=== PATIENT | male | born 1990 | race American Indian/Alaskan Native ===

== ENCOUNTER 2024-05-02 18:25 | Emergency (ER) | payer MEDICAID, SELFPAY ==
[2024-05-02 18:28] VITALS: BMI 21.9
[2024-05-02 18:54] VITALS: BP 131/82; PULSE 88; RESP 16; TEMP 37.1; O2SAT 96
--- NOTE | 2024-05-02 19:06 | PD.EDRME ---
Rapid Medical Screening Exam RME Arrival date/time: 05/02/24 18:25 35-year-old male no significant past medical history presents emergency department complaining of burning epigastric pain that has now moved to the right upper quadrant and is been ongoing for 6 days. Patient also endorses nausea and headache. Chief Complaint: Abdominal Pain Time Seen by Provider: 05/02/24 18:43 Vital signs: Vital Signs Temperature 98.7 F 05/02/24 18:54 Pulse Rate 88 05/02/24 18:54 Respiratory Rate 16 05/02/24 18:54 Blood Pressure 131/82 H 05/02/24 18:54 Pulse Oximetry (%) 96 05/02/24 18:54 Oxygen Delivery Method Room Air 05/02/24 18:54 Vital signs reviewed by provider: Yes
[2024-05-02 19:32] LABS: Basophils % (Auto) 0 % (0-2.5); Eosinophils % (Auto) 0 % (0-10); Hematocrit 40.7 % (41.0-53.0); Hemoglobin 13.8 g/dL (13.5-16.0); Immature Granulocytes % (Auto) 0 % (0-0); Immature Granulocytes Auto 0.01 Thou/mm3 (0.00-0.00); Lymphocytes # (Auto) 1.9 Thou/mm3 (1.0-4.8); Lymphocytes % (Auto) 32 % (10-50); Mean Corpuscular HGB Conc 33.9 g/dl (31.0-37.0); Mean Corpuscular Hemoglobin 30.9 pg (25.0-35.0); Mean Corpuscular Volume 91 fL (80-100); Monocytes # (Auto) 0.5 Thou/mm3 (0.0-0.8); Monocytes % (Auto) 8 % (0-12); Neutrophils # (Auto) 3.5 Thou/mm3 (1.8-7.7); Neutrophils % (Auto) 59 % (37-80); Nucleated Red Blood Cell % 0 /100 WBC (0); Platelet Count 221 Thou/mm3 (140-440); RDW Standard Deviation 42.8 fL (35.1-43.9); Red Blood Count 4.46 Miln/mm3 (4.50-5.90); White Blood Count 5.9 Thou/mm3 (3.8-10.6)
[2024-05-02] MEDS: LIDOCAINE VISCOUS 2% 15 ML UDC PO (19:48)
[2024-05-02] MEDS: FAMOTIDINE 20 MG TABLET 40 MG PO (19:48)
[2024-05-02] MEDS: MG HYD/AL HYD/SIME (Maalox Reg) SUSP 30 ML UDC PO (19:48)
[2024-05-02 19:50] LABS: Collection Type, Urine Clean Catch; Squamous Epithelial Cell,Urine 0 /hpf (0-5)
[2024-05-02 19:50] LABS: Alanine Aminotransferase 20 U/L (10-49); Albumin, Serum 4.6 gm/dL (3.5-5.0); Alkaline Phosphatase 62 U/L (46-116); Anion Gap 8 (7-16); Aspartate Amino Transferase 19 U/L (0-34); BUN/Creatinine Ratio 8 Ratio (12-20); Bilirubin,Total 0.4 mg/dL (0.3-1.2); Blood Urea Nitrogen 6 mg/dL (9-23); Calcium 9.6 mg/dL (8.3-10.6); Calcium (Corrected) 9.6 mg/dL (8.5-10.1); Carbon Dioxide 28.8 mMol/L (20.0-31.0); Chloride 105 mMol/L (98-107); Creatinine (Component) 0.8 mg/dL (0.6-1.3); Estimated Creatinine Clearance 119.1 mL/min (>60); Globulin 2.3 gm/dL (2.3-3.5); Glucose 95 mg/dL (74-106); Lipase 44 U/L (12-53); Osmolality,Calculated 280 (275-295); Potassium 3.8 mMol/L (3.4-5.1); Sodium 142 mMol/L (136-145); Total Protein 6.9 gm/dL (5.7-8.2); eGFR > 60 See Note
[2024-05-02 19:53] LABS: Bilirubin,Urine Negative (Negative); Blood,Urine Negative (Negative); Clarity,Urine Clear (Clear/Hazy); Color,Urine Colorless (Lt Yel-Yel); Culture Indicated,Urine Not Indicated; Glucose, Urine Negative (Negative); Ketones,Urine Negative (Negative); Leukocyte Esterase,Urine Negative (Negative); Nitrite,Urine Negative (Negative); PH,Urine 7.5 (5.0-7.0); Protein,Urine Negative (Neg - Trace); RBC,Urine 1 /hpf (0-3); Urobilinogen,Urine Negative mg/dL (0.0-1.0); WBC,Urine < 1 /hpf (0-5)
[2024-05-02 20:03] LABS: Amphetamine/Methamp Scrn,U Negative (Negative); Barbiturate Screen,Urine Negative (Negative); Benzodiazepines Screen,Urine Negative (Negative); Benzoylecgonine Screen, Ur Negative (Negative); Fentanyl Screen,Urine Negative (Negative); Opiate Screen,Urine Negative (Negative); THC Screen,Urine Negative (Negative)
--- NOTE | 2024-05-02 20:07 | EDNOTE_ITS ---
<Statement entered by Sandy Ortega MD - 05/03/24 04:28> As co-signing physician, I was present and available for consult prn. I concur with the plan and care as documented by the midlevel provider. ED Abdominal Pain RME/HPI General Chief Complaint: Abdominal Pain Stated complaint: abdominal pain, NV, BROTHERS x 6 days Time seen by provider: 05/02/24 18:43 Arrival date/time: 05/02/24 18:25 35-year-old male no significant past medical history presents emergency department complaining of burning epigastric pain that has now moved to the right upper quadrant and is been ongoing for 6 days. Patient also endorses nausea and headache. Source: patient Mode of arrival: ambulatory Limitations: no limitations RME / HPI RME / HPI narrative: 05/02/24 18:25 35-year-old male no significant past medical history presents emergency department complaining of burning epigastric pain that has now moved to the right upper quadrant and is been ongoing for 6 days. Patient also endorses nausea and headache. Related Data Allergies Allergy/AdvReac Type Severity Reaction Status Date / Time No Known Allergies Allergy Verified 05/02/24 18:27 Review of Systems Review of Systems Systems Reviewed: All systems reviewed, normal except as documented Constitutional Constitutional: Reports system reviewed and no additional complaints, except as documented, Denies body ache(s), Denies chills, Denies fever(s) and Reports headache(s) Eyes Eyes: Reports system reviewed and no additional complaints, except as documented and Denies change in vision ENT Ears, Nose, Mouth, and Throat: Reports system reviewed and no additional complaints, except as documented, Denies disequilibrium, Denies dizziness, Reports headache(s), Denies sore throat and Denies vertigo Cardiovascular Cardiovascular: Reports system reviewed and no additional complaints, except as documented, Denies chest pain and Denies dyspnea Respiratory Respiratory: Reports system reviewed and no additional complaints, except as documented, Denies chest congestion, Denies cough and Denies dyspnea Gastrointestinal Gastrointestinal: Reports system reviewed and no additional complaints, except as documented, Reports abdominal pain, Reports nausea and Denies vomiting Musculoskeletal Musculoskeletal: Reports system reviewed and no additional complaints, except as documented, Denies abnormal gait and Denies arthralgias Integumentary/Breasts Skin/Breast: Reports system reviewed and no additional complaints, except as documented, Denies erythema, Denies rash and Denies wounds Neurologic Neurologic: Reports system reviewed and no additional complaints, except as documented, Denies abnormal gait, Denies disequilibrium, Denies dizziness, Reports headache(s) and Denies vertigo Past Medical History Social History SMOKING STATUS: Never smoker ED Exam General Limitations: Present no limitations General appearance: Present alert and in no apparent distress Head Head exam: Present atraumatic Eye Eye exam: Present normal appearance, PERRL and EOMI ENT ENT exam: Present normal exam, normal oropharynx and mucous membranes moist Neck Neck exam: Present normal inspection, full ROM and trachea midline Chest Chest inspection: Present normal inspection and symmetric chest wall rise Respiratory Respiratory exam: Present normal lung sounds bilaterally Cardiovascular Cardiovascular exam: Present regular rate, normal rhythm and normal heart sounds Abdominal Exam Abdominal exam: Present soft and normal bowel sounds Extremities Exam Extremities exam: Present normal inspection and full ROM Back Exam Back exam: Present normal inspection and full ROM Neurological Exam Neurological exam: Present alert, oriented X3 and CN II-XII intact Psychiatric Psychiatric exam: Present normal affect and normal mood Skin Skin exam: Present warm, dry, intact and normal color Course Quality Measures none Orders Category Date Time Status CBC Stat Lab 05/02/24 19:19 Completed CMP [Comprehensive Metabolic Panel] Stat Lab 05/02/24 19:19 Completed Drug Screen,Urine Stat Lab 05/02/24 19:43 Completed Lipase Stat Lab 05/02/24 19:19 Completed Urinalysis, C/S if Indicated Stat Lab 05/02/24 19:43 Completed Famotidine [Pepcid] Med 05/02/24 19:05 Discontinued 40 mg PO X1 ONE Lidocaine 2% Viscous [Xylocaine 2% Viscous] Med 05/02/24 19:05 Discontinued 15 ml PO X1 ONE mg Hyd/Al Hyd/Christos Susp [Maalox Susp] Med 05/02/24 19:05 Discontinued 30 ml PO X1 ONE Vital Signs Vital signs: Vital Signs Temperature 98.7 F 05/02/24 18:54 Pulse Rate 88 05/02/24 18:54 Respiratory Rate 16 05/02/24 18:54 Blood Pressure 131/82 H 05/02/24 18:54 Pulse Oximetry (%) 96 05/02/24 18:54 Oxygen Delivery Method Room Air 05/02/24 18:54 96% room air within normal limits Abdominal Pain MDM MDM Narrative MDM Narrative:: 35-year-old male no significant past medical history presents emergency department complaining of burning epigastric pain that has now moved to the right upper quadrant and is been ongoing for 6 days. Patient also endorses nausea and headache. Patient denies any fever, chills, cough, dysuria, or any other associated symptom. CBC was unremarkable for any leukocytosis. CMP was unremarkable for any elevated LFTs or gross electrolyte abnormalities. Urinalysis was also unremarkable. Abdomen is soft and nontender. Patient reported improvement in symptoms after medication was given. Patient struck to follow-up with primary care provider and return to emergency department for any worsening symptoms or as needed. Patient data External records reviewed:: None Clinical information provided by:: patient Social determinants that could affect healthcare access:: none Patient has the following chronic illnesses:: None How is presenting disease/condition affected by chronic disease/condition?: no chronic disease Evaluation data The following diagnostics were reviewed and interpreted by me:: lab results Lab and/or radiology exams considered but not ordered:: Ordered Interpretation Summary: Interpreted by me Medications / Prescriptions Medications or Prescriptions considered but not ordered:: Ordered Medication administrations:: Medication Administration History Discontinued Medications Al Hydrox/Mg Hydrox/Simethicone (Mg Hyd/Al Hyd/Christos (Maalox Reg) Susp 30 Ml Udc) 30 ml PO X1 ONE Stop: 05/02/24 19:06 Last Admin: 05/02/24 19:48 Dose: 30 ml Documented By: ERIKA Famotidine (Famotidine 20 Mg Tablet) 40 mg PO X1 ONE Stop: 05/02/24 19:06 Last Admin: 05/02/24 19:48 Dose: 40 mg Documented By: EE Lidocaine HCl (Lidocaine Viscous 2% 15 Ml Udc) 15 ml PO X1 ONE Stop: 05/02/24 19:06 Last Admin: 05/02/24 19:48 Dose: 15 ml Documented By: EE Given Consultations Consultation(s) initiated? (list below): No Diagnosis Differential diagnosis abdominal pain: abdominal pain, acute appendicitis, calculus of kidney, constipation, diverticulitis, gastroenteritis, pancreatitis and small bowel obstruction Most likely diagnosis given after review of the tests above:: Abdominal pain Admission Indicated Admission indicated?: not indicated Admission Request Was there a request for admission?: No Disposition Plan Disposition Plan: Discharge Discharge Attestation Discharge Attestation: The patient and all family members were given an opportunity to ask questions and understood the discharge instructions. Discharge instructions specifically effects, indications for sooner follow up or return to the emergency department, and the expected course of current diagnosis. Patient condition: Stable Discharge Plan Plan Patient Disposition: HOME (Self Care) Disposition Comment: Stable Prescriptions/Referrals Referrals: No Primary/Family,Physician [Primary Care Provider] - In 1 week Problem List Clinical Impression: Abdominal pain Patient/Caregiver Discharge Instructions Discharge Activity: activity as tolerated Education Materials: Abdominal Pain Additional Instructions: Drink plenty of fluids and stay hydrated. Avoid drinking alcohol, spicy foods, or fatty foods. Follow-up with primary care provider in 2 to 3 days and request H. pylori testing or referral to GI specialist if symptoms persist. Return to emergency department for any worsening symptoms or as needed. Print Language: Kyrgyz Stand Alone Forms: Adelina Award Info., Patient Portal Info Letter PA/PACKING CLERK Supervising Physician PA/PACKING CLERK Supervising Physician: Dr. Ortega
== END 2024-05-02 20:35 | disposition home or self-care (01) ==
PROVIDERS: Emergency Provider Emergency Medicine
DX: R10.13 Epigastric pain (principal); R10.11 Right upper quadrant pain
CPT/HCPCS: 36415; 80053; 80307; 81001; 83690; 85025; 99283; J3490; A9270

== ENCOUNTER 2025-03-05 03:42 | Emergency (ER) | payer MEDICAID, SELFPAY ==
[2025-03-05 03:44] VITALS: BMI 26.6
--- NOTE | 2025-03-05 03:56 | EKG_ITS ---
[facility] Test Date: 2025-03-05 Pat Name: VENU MARS Department: Room: - Gender: Male Air Bag Buffer: : 1990 Requested By: Jesus Alberto Villegas Order Number: [id number] Reading MD: Jesus Alberto Villegas Measurements Intervals Harrison Rate: 138 P: 65 WV: 136 QRS: 99 QRSD: 97 T: 50 QT: 308 QTc: 467 Interpretive Statements SINUS TACHYCARDIA INDETERMINATE AXIS ABNORMAL RHYTHM ECG WARNING: DATA QUALITY MAY AFFECT INTERPRETATION No previous ECG available for comparison /[id number]/[email or web address]/[id number]/[id number]
--- NOTE | 2025-03-05 04:11 | EDNOTE_ITS ---
ED Medical Clearance RME/HPI General Chief complaint: Medical Clearance Stated complaint: LONG TERM CLEARANCE Arrival date/time: 03/05/25 03:42 RME / HPI RME / HPI Narrative: See [facility] for Dr. Rangel's HPI Documentation. Related Information Allergies Allergy/AdvReac Type Severity Reaction Status Date / Time No Known Allergies Allergy Verified 03/05/25 03:46 Review of Systems Review of Systems Systems Reviewed: All systems reviewed, normal except as documented Past Medical History Social History SMOKING STATUS: Light (< 1 pack/day) ED Exam Narrative Physical exam: See [facility] for Dr. Rangel's Physical Exam Documentation. Course Quality Measures none Orders Category Date Time Status EKG (ED ONLY) *Do not use* NOW Care 03/05/25 03:56 Completed EKG (ED Only) Stat Exams 03/05/25 03:56 Draft Metoprolol Tartrate [Lopressor] Med 03/05/25 03:56 Discontinued 25 mg PO X1 ONE Vital Signs Vital signs: Vital Signs Temperature 97.9 F 03/05/25 04:13 Pulse Rate 139 H 03/05/25 04:13 Respiratory Rate 18 03/05/25 04:13 Blood Pressure 122/66 03/05/25 04:13 Pulse Oximetry (%) 94 L 03/05/25 04:13 Medical Clearance [facility] Narrative [facility] Narrative:: This section includes all my notes and documentations, including HPI, PE, and ED course. Jesus Alberto Rangel MD HPI: 35 y/o male BIB [facility] here for halfway medical clearance due to tachycardia. Patient is not answering any of my questions. Uncertain about chest pain. Uncertain about alcohol or drug ingestion. ROS: Patient declined to answer my questions. Physical Exam: General: Alert. Appears intoxicated. Eyes: Conjunctivae and lids clear. EOMI. PERRL. ENT: No nasal congestion. Neck: Supple. Heart: Tachycardia with regular rhythm. Lungs: No respiratory distress. Good air movement. No rhonchi, wheezing, rales. Chest: No tenderness. Abdomen: Soft and nontender. Normal bowel sounds. No distension. No rebound or guarding. Back: No tenderness. Legs: No clubbing, cyanosis, edema. Skin: Warm and dry. Neuro: Alert. Cranial Nerves II-XII grossly intact. No peripheral motor deficits. Musculoskeletal: All major joints and bones are not tender with no limited ROM. I reviewed all diagnostic test results: My interpretation of the EKG is: Sinus tachycardia (138 bpm) with nonspecific ST-T changes. Patient declined all other diagnostic tests, including blood/urine tests. At this point, diagnoses include: Tachycardia Patient declined all diagnostic tests and treatments. Discussed potential risks, including worsening and sudden . We couldn't change his mind. Based on my best medical judgment, made decision to medically clear the patient and no further evaluation or treatment indicated at this time. Patient understands and agrees to the discharge instructions customized and printed, see below. Discharge Instructions from Dr. Rangel printed for you: 1. After evaluation, you are medically cleared for halfway without full diagnostic tests and appropriate treatments. Because you declined all diagnostic tests and appropriate treatments. Despite discussing potential risks, including sudden , we couldn't change your mind. 2. See a private doctor on 03/07/25 or whenever you are released for recheck and further care. 3. Seek immediate medical care with chest pain or with any concerns You can ask for immediate medical attention anytime. Jesus Alberto Rangel MD Patient data External records reviewed:: [facility] previous records (Reviewed prior ED records from 05/02/24. Patient was seen for Abdominal pain.) Clinical information provided by:: patient and law enforcement Social determinants that could affect healthcare access:: none Patient has the following chronic illnesses:: None reported How is presenting disease/condition affected by chronic disease/condition?: no chronic disease Evaluation data The following diagnostics were reviewed and interpreted by me:: lab results and EKG tracing(s) (My interpretation of the EKG is: Sinus tachycardia (138 bpm) with nonspecific ST-T changes. Jesus Alberto Rangel MD) Lab and/or radiology exams considered but not ordered:: None Interpretation Summary: I reviewed all diagnostic test results: My interpretation of the EKG is: Sinus tachycardia (138 bpm) with nonspecific ST-T changes. Patient declined all other diagnostic tests, including blood/urine tests. Medications / Prescriptions Medications or Prescriptions considered but not ordered:: None Medication administrations:: Medication Administration History Discontinued Medications Metoprolol Tartrate (Metoprolol Tartrate 25 Mg Tablet) 25 mg PO X1 ONE Stop: 03/05/25 03:57 Last Admin: 03/05/25 04:24 Dose: Not Given Documented By: CARMENCITA Non-Admin Reason: Patient Refused Patient declined all diagnostic tests and treatments. Discussed potential risks, including worsening and sudden . We couldn't change his mind. Consultations Consultation(s) initiated? (list below): No Diagnosis Medical Clearance Differential Diagnosis: other (Hypertension, Tachycardia, Anxiety Disorder) Most likely diagnosis given after review of the tests above:: Tachycardia, probably due to intoxication. Admission Indicated Admission indicated?: not indicated Explain why admission is indicated or not indicated:: Patient declined all diagnostic tests and treatments. Discussed potential risks, including worsening and sudden . We couldn't change his mind. Admission Request Was there a request for admission?: No Disposition Plan Disposition Plan: Discharge (Discharged to [facility]) Discharge Attestation Discharge Attestation: The patient and all family members were given an opportunity to ask questions and understood the discharge instructions. Discharge instructions specifically effects, indications for sooner follow up or return to the emergency department, and the expected course of current diagnosis. Patient condition: Stable Discharge Plan Plan Patient Disposition: Detention/Court/Law Prescriptions/Referrals Referrals: No Primary/Family,Physician [Primary Care Provider] - In 1 week Problem List Clinical Impression: Tachycardia Patient/Caregiver Discharge Instructions Discharge Activity: activity as tolerated Education Materials: Understanding Tachycardia, ED About Arrhythmias Additional Instructions: Discharge Instructions from Dr. Rangel printed for you: 1. After evaluation, you are medically cleared for halfway without full diagnostic tests and appropriate treatments. Because you declined all diagnostic tests and appropriate treatments. Despite discussing potential risks, including sudden , we couldn't change your mind. 2. See a private doctor on 03/07/25 or whenever you are released for recheck and further care. 3. Seek immediate medical care with chest pain or with any concerns You can ask for immediate medical attention anytime. Print Language: Kuwaiti
[2025-03-05 04:13] VITALS: BP 122/66; PULSE 139; RESP 18; TEMP 36.6; O2SAT 94
[2025-03-05 04:19] VITALS: BP 122/66; PULSE 138; RESP 18; TEMP 37.7; O2SAT 98
== END 2025-03-05 04:35 ==
PROVIDERS: Emergency Provider Emergency Medicine
DX: Z02.89 Encounter for other administrative examinations (principal); R00.0 Tachycardia, unspecified
CPT/HCPCS: 80053; 80307; 80320; 82248; 83690; 83735; 83880; 84443; 84484; 85025; 85379; 93005; 99281; A9270; G0480